=== PATIENT | female | born 1990 | race Caucasian/White ===

== ENCOUNTER 2016-08-02 11:59 | Emergency (ER) | payer MEDICAID ==
[2016-08-02] MEDS ORDERED: HYDROcod/ACETAM 5/325 MG TABLET PO STA (13:41)
[2016-08-02] MEDS ORDERED: CLINDAMYCIN 150 MG CAPSULE PO STA (13:41)
[2016-08-02] MEDS ORDERED: HYDROcod/ACETAM 5/325 MG TABLET ONE (13:44)
[2016-08-02] MEDS ORDERED: CLINDAMYCIN 150 MG CAPSULE PO ONE (13:44)
== END 2016-08-02 13:54 | disposition home or self-care (01) ==
DX: K04.7 Periapical abscess without sinus (principal); F17.200 Nicotine dependence, unspecified, uncomplicated
CPT/HCPCS: 99283; A9270

== ENCOUNTER 2017-09-16 21:35 | Emergency (ER) | payer MEDICAID | END 2017-09-16 22:10 | disposition left against medical advice (07) | LOC: ED 21:35 | DX: Z53.9 Procedure and treatment not carried out, unspecified reason (principal) ==

== ENCOUNTER 2017-09-30 00:53 | Outpatient (CLI) | payer MEDICAID | END 2017-09-30 00:54 | disposition critical access hospital (66) | LOC: EMS 00:53 | PROVIDERS: ATTEND Surgery | DX: R09.89 Other specified symptoms and signs involving the circulatory and respiratory systems (principal) | CPT/HCPCS: A0425; A0429 ==

== ENCOUNTER 2017-09-30 01:11 | Emergency (ER) | payer MEDICAID ==
[2017-09-30 01:58] LABS: MUDS CUTOFF CONCENTRATIONS CUTOFF CONC BELOW:
[2017-09-30 02:01] LABS: BILIRUBIN,URINE NEGATIVE (NEGATIVE); GLUCOSE, URINE (UA) NEGATIVE (NEGATIVE); KETONES,URINE (UA) NEGATIVE (NEGATIVE); LEUKOCYTE ESTERASE, URINE NEGATIVE (NEGATIVE); NITRITE,URINE NEGATIVE (NEGATIVE); OCCULT BLOOD,URINE NEGATIVE (NEGATIVE); PROTEIN,URINE NEGATIVE (NEGATIVE); UROBILINOGEN,URINE 0.2 (NORMAL) E.U./dL (NORMAL)
[2017-09-30 02:04] LABS: CLARITY,URINE CLEAR (CLEAR)
[2017-09-30 02:19] LABS: AMPHETAMINE SCREEN,URINE POSITIVE (NEGATIVE); BENZODIAZEPINES SCREEN, URINE NEGATIVE (NEGATIVE); COCAINE SCREEN URINE NEGATIVE (NEGATIVE); METHADONE SCREEN, URINE NEGATIVE (NEGATIVE); METHAMPHETAMINES SCREEN, URINE NEGATIVE (NEGATIVE); OPIATE SCREEN, URINE NEGATIVE (NEGATIVE); OXYCODONE SCREEN, URINE NEGATIVE (NEGATIVE); PROPOXYPHENE SCREEN, URINE NEGATIVE (NEGATIVE); TRICYCLIC ANTIDEPRESSANT,URINE NEGATIVE (NEGATIVE)
--- NOTE | 2017-09-30 02:36 | ED Physician Documentation ---
PD HPI ABD PAIN - Stated complaint Stated Complaint: SOA - Chief complaint Chief Complaint: Abd Pain - History obtained from History obtained from: Patient, EMS - History of Present Illness Timing - onset: Today Timing - details: Gradual onset, Still present Quality: Aching, Dull Location: Epigastric, LUQ Worsened by: Eating Associated symptoms: Nausea. No: Vomiting, Diarrhea, Constipation Similar symptoms before: No diagnosis Recently seen: Not recently seen - Additional information Additional information: Patient is a 27 year old female presenting to the emergency department for abdominal pain. Patient states that tonight she ate pizza (and she no longer has a gallbladder) then she developed left upper quadrant pain. Patient also states that she had nausea and vomiting. Review of Systems Constitutional: denies: Fever, Chills Cardiac: denies: Chest pain / pressure, Palpitations Respiratory: reports: Dyspnea. denies: Wheezing GI: reports: Abdominal Pain, Abdominal Swelling, Nausea. denies: Vomiting, Constipation, Diarrhea : denies: Dysuria, Frequency, Hesitancy Musculoskeletal: denies: Back pain Immunocompromised: denies: Immunocompromised PD PAST MEDICAL HISTORY - Past Medical History GI: Hepatitis - Past Surgical History Past Surgical History: Yes General: Cholecystectomy HEENT: Tonsil/Adenoidectomy - Present Medications Home Medications: Ambulatory Orders Medication Instructions Recorded Confirmed Ondansetron Odt [Zofran] 4 mg TL Q6H PRN #14 tablet 09/30/17 Simethicone [Gas Relief] 125 mg PO BID #20 capsule 09/30/17 - Allergies Allergies/Adverse Reactions: Allergies Allergy/AdvReac Type Severity Reaction Status Date / Time No Known Drug Allergies Allergy Verified 12/29/15 14:12 - Social History Does the pt smoke?: Yes Smoking Status: Current every day smoker Does the pt drink ETOH?: No Does the pt have substance abuse?: No - Immunizations Immunizations are current?: No PD ED PE NORMAL - Vitals Vital signs reviewed: Yes - General General: Alert and oriented X 3 - HEENT HEENT: Atraumatic - Cardiac Cardiac: RRR - Respiratory Respiratory: No respiratory distress - Abdomen Abdomen: Soft - Derm Derm: Normal color - Extremities Extremities: No deformity - Neuro Neuro: Alert and oriented X 3, No motor deficit Eye Opening: Spontaneous PD ED PE EXPANDED - General General: Alert, In Pain - Abdomen Abdomen: Tender to palpation, LUQ. No: Rebound, Guarding Results - Vitals Vitals: Vital Signs - 24 hr 09/30/17 01:12 Temperature 36.7 C Heart Rate 89 Respiratory 18 Rate Blood Pressure 136/93 H O2 Saturation 98 Oxygen O2 Source Room air - Labs Labs: Laboratory Tests 09/30/17 01:57 Urine Color YELLOW Urine Clarity CLEAR Urine pH 6.0 Ur Specific [place] >=1.030 H Urine Protein NEGATIVE Urine Glucose (UA) NEGATIVE Urine Ketones NEGATIVE Urine Occult Blood NEGATIVE Urine Nitrite NEGATIVE Urine Bilirubin NEGATIVE Urine Urobilinogen 0.2 (NORMAL) Ur Leukocyte Esterase NEGATIVE Ur Microscopic Review NOT INDICATED Urine Culture Comments NOT INDICATED Urine Opiates Screen NEGATIVE Ur Oxycodone Screen NEGATIVE Urine Methadone Screen NEGATIVE Ur Propoxyphene Screen NEGATIVE Ur Barbiturates Screen NEGATIVE Ur Tricyclics Screen NEGATIVE Ur Phencyclidine Scrn NEGATIVE Ur Amphetamine Screen POSITIVE H U Methamphetamines Scrn NEGATIVE U Benzodiazepines Scrn NEGATIVE Urine Cocaine Screen NEGATIVE U Cannabinoids Screen NEGATIVE - Rads (name of study) acute abdomen Radiology: Final report received (mild gas distention) PD MEDICAL DECISION MAKING - ED course Complexity details: reviewed old records, reviewed results, re-evaluated patient , considered differential, d/w patient ED course: Patient was seen and examined at bedside. multiple attempts at IV were made but were unsuccessful (patient has history of ivda). urine was collected. patient was treated with toradol and zofran. imaging was ordered. When patient returned from imaging results were reviewed. Patient had no signs of obstruction but did have some gaseous distention. patient was treated with pepcid, maalox and viscous lidocaine with good relief. Patient was given detailed discharge and follow up instructions. Patient required no further work up and was stable for discharge with outpatient follow up. - Sepsis Event Vital Signs: Vital Signs - 24 hr 09/30/17 01:12 Temperature 36.7 C Heart Rate 89 Respiratory 18 Rate Blood Pressure 136/93 H O2 Saturation 98 Oxygen O2 Source Room air Departure - Departure Disposition: 01 Home, Self Care Clinical Impression: Abdominal gas pain Condition: Good Instructions: Abdominal Pain Follow-Up: primary,care provider [Other] - Within 3 Days Prescriptions: Ondansetron Odt [Zofran] 4 mg TL Q6H PRN #14 tablet PRN Reason: Nausea / Vomiting Simethicone [Gas Relief] 125 mg PO BID #20 capsule Comments: Your diagnostics today were within normal limits. there is no acute abnormalities. Your symptoms are likely being caused by abdominal distention secondary to gas. You should avoid hi fat foods since you no longer have your gallbladder. You can take zofran for nausea and simethicone for gas. you should follow up with your doctor if your symptoms persist. You may return to the emergency department at any time for new, worsening or uncontrollable symptoms.
--- NOTE | 2017-09-30 02:38 | XRAY Report ---
EXAM: ABDOMINAL SERIES AND PA CHEST EXAM DATE: 09/30/2017 02:23 AM. CLINICAL HISTORY: Diffuse abdominal pain. Shortness of breath. COMPARISON: None. TECHNIQUE: 2 views abdomen and 1 view chest. FINDINGS: CHEST: Lungs/Pleura: No alveolar consolidation or pleural effusion seen. No pneumothorax. Mediastinum: Within exam limitations, cardiomediastinal contour is normal. ABDOMEN: Bowel Gas Pattern: No dilated loops or abnormal air-fluid levels. Moderate gas and stool in the colon . Free Air: None. Other: None. IMPRESSION: 1. No bowel obstruction seen. Moderate gas and stool in the colon. 2. No acute abnormality seen in the chest. [facility] Referring Provider Line: [phone] SITE ID: [id number]
--- NOTE | 2017-09-30 02:38 | XRAY Preliminary Report ---
Exam: XR ABDOMEN ACUTE IMPRESSION: 1. No bowel obstruction seen. Moderate gas and stool in the colon. 2. No acute abnormality seen in the chest. [facility] SITE ID: [id number]
[2017-09-30] MEDS ORDERED: MAG HYDROX/AL HYDROX/SIMETH 30 ML UDC PO STA (02:40)
[2017-09-30] MEDS ORDERED: ONDANSETRON ODT 4 MG TABLET TL STA (02:40)
[2017-09-30] MEDS ORDERED: LIDOCAINE VISCOUS 2% 15 ML UDC MM STA (02:40)
[2017-09-30] MEDS ORDERED: KETOROLAC 60 MG/2 ML VIAL IM STA (02:40)
[2017-09-30] MEDS ORDERED: FAMOTIDINE 20 MG TABLET PO STA (02:40)
[2017-09-30] MEDS ORDERED: ONDANSETRON ODT 4 MG Prepack 2 TL STA (02:59)
[2017-09-30 03:14] VITALS: BP 130/88
== END 2017-09-30 03:13 | disposition home or self-care (01) ==
LOC: EDUNIT# → ED 01:11
DX: R14.1 Gas pain (principal); F17.200 Nicotine dependence, unspecified, uncomplicated
CPT/HCPCS: 74022; 80306; 81003; 96372; 99283; A9270; Q0162; 80053; 80320; 81001; 83690; 83735; 84100; 84443; 84484; 85025; 87086

== ENCOUNTER 2018-03-14 20:57 | Emergency (ER) | payer SELFPAY ==
[2018-03-14] MEDS ORDERED: CLINDAMYCIN 150 MG CAPSULE PO STA (21:17)
[2018-03-14] MEDS ORDERED: IBUPROFEN 600 MG TABLET PO STA (21:17)
[2018-03-14] MEDS ORDERED: LORazepam 0.5 MG TABLET PO STA (21:17)
[2018-03-14] MEDS ORDERED: ONDANSETRON ODT 4 MG TABLET TL STA (21:17)
--- NOTE | 2018-03-14 21:21 | ED Physician Documentation ---
PD HPI HEENT FB - Chief complaint Chief Complaint: Heent - History obtained from History obtained from: Patient - History of Present Illness Timing - onset: Other (She has 2 complaints, she has not used heroin in about 2 or 3 days and is feeling restless legs, anxiety, poor sleep and nausea. He also has right-sided facial swelling from dental caries. No fevers or possibility of .) Review of Systems Constitutional: denies: Fever, Chills Throat: reports: Dental pain / toothache. denies: Sore throat Cardiac: denies: Chest pain / pressure, Palpitations Respiratory: denies: Dyspnea, Cough PD PAST MEDICAL HISTORY - Past Medical History GI: Hepatitis - Past Surgical History Past Surgical History: Yes General: Cholecystectomy HEENT: Tonsil/Adenoidectomy - Present Medications Home Medications: Ambulatory Orders Medication Instructions Recorded Confirmed Ondansetron Odt [Zofran] 4 mg TL Q6H PRN #14 tablet 09/30/17 Simethicone [Gas Relief] 125 mg PO BID #20 capsule 09/30/17 Clindamycin HCl [Clindamycin 300MG 300 mg PO Q6H #40 capsule 03/14/18 CAP] Ibuprofen [Motrin] 800 mg PO Q8H PRN #30 tablet 03/14/18 Lorazepam [Ativan] 1 mg PO TID PRN #15 tablet 03/14/18 Ondansetron Odt [Zofran] 4 mg TL Q6H PRN #10 tablet 03/14/18 - Allergies Allergies/Adverse Reactions: Allergies Allergy/AdvReac Type Severity Reaction Status Date / Time ibuprofen AdvReac Mild Nausea Verified 03/14/18 21:03 - Social History Does the pt smoke?: Yes Smoking Status: Current every day smoker Does the pt drink ETOH?: No Does the pt have substance abuse?: No - Immunizations Immunizations are current?: No PD ED PE NORMAL - Vitals Vital signs reviewed: Yes - General General: Alert and oriented X 3, No acute distress - HEENT HEENT: Other (Mild right-sided facial swelling overlying right maxillary premolars without obvious drainable abscess. No trismus or sublingual edema.) - Neck Neck: Supple, no meningeal sign, No bony TTP - Neuro Neuro: Alert and oriented X 3, Normal speech Results - Vitals Vitals: Vital Signs - 24 hr 03/14/18 21:03 Temperature 36.8 C Heart Rate 110 H Respiratory 18 Rate Blood Pressure 113/72 O2 Saturation 100 Oxygen O2 Source Room air Departure - Departure Disposition: 01 Home, Self Care Clinical Impression: Dental abscess, Heroin withdrawal Condition: Good Record reviewed to determine appropriate education?: Yes Instructions: ED Dental Abscess Facial Cellulitis, Addiction Heroin Tx Prescriptions: Clindamycin HCl [Clindamycin 300MG CAP] 300 mg PO Q6H #40 capsule Ibuprofen [Motrin] 800 mg PO Q8H PRN #30 tablet PRN Reason: PAIN &/OR FEVER Lorazepam [Ativan] 1 mg PO TID PRN #15 tablet PRN Reason: Anxiety Ondansetron Odt [Zofran] 4 mg TL Q6H PRN #10 tablet PRN Reason: Nausea / Vomiting Comments: It is very important that you follow-up with a dentist. When it comes to dental problems like yours, the emergency department can only offer a short-term solution to your long-term problem. A couple of low cost options for dental care include: [facility] in [place], calls [phone] for an appointment Or [facility] in [place], call [phone] for an appointment.
[2018-03-14 21:29] VITALS: BP 112/72
== END 2018-03-14 21:28 | disposition home or self-care (01) ==
LOC: ED 20:57
DX: K04.7 Periapical abscess without sinus (principal); F11.23 Opioid dependence with withdrawal; F17.200 Nicotine dependence, unspecified, uncomplicated
CPT/HCPCS: 99283; A9270; Q0162

== ENCOUNTER 2018-12-04 13:05 | Emergency (ER) | payer MEDICAID ==
[2018-12-04 13:38] VITALS: BP 109/68
== END 2018-12-04 17:00 | disposition left against medical advice (07) ==
LOC: ED 13:05
DX: Z53.21 Procedure and treatment not carried out due to patient leaving prior to being seen by health care provider (principal)

== ENCOUNTER 2019-06-16 19:31 | Emergency (ER) | payer MEDICAID ==
[2019-06-16 20:45] LABS: BASOPHILS % (AUTO) 0.3 %; EOSINOPHILS # (AUTO) 0.6 10^3/uL (0.0-0.7); EOSINOPHILS % (AUTO) 4.5 %; HGB - HEMOGLOBIN 12.7 g/dL (12.0-16.0); LYMPHOCYTES # (AUTO) 4.9 10^3/uL (1.5-3.5); MEAN CORPUSCULAR HEMOGLOBIN 27.8 pg (27.0-31.0); MEAN CORPUSCULAR VOLUME 86.9 fL (81.0-99.0); MEAN PLATELET VOLUME 9.1 fL (7.9-10.8); MONOCYTES % (AUTO) 8.3 %; NEUTROPHILS # (AUTO) 5.7 10^3/uL (1.5-6.6); NEUTROPHILS % (AUTO) 46.5 %; PLT - PLATELET COUNT 296 10^3/uL (130-450); RED BLOOD COUNT 4.57 10^6/uL (4.20-5.40); RED CELL DISTRIBUTION WIDTH 13.8 % (12.0-15.0); WHITE BLOOD COUNT 12.3 x10^3/uL (4.8-10.8)
[2019-06-16 21:03] LABS: ACETAMINOPHEN < 10 ug/mL (10-30); ALBUMIN 3.6 g/dL (3.2-5.5); ALBUMIN/GLOBULIN RATIO 0.7 (1.0-2.2); ALKALINE PHOSPHATASE 135 IU/L (42-121); ALT ALANINE AMINOTRANSFERASE 77 IU/L (10-60); AST ASPARTATE AMINOTRANSFERASE 51 IU/L (10-42); BILIRUBIN,TOTAL 0.3 mg/dL (0.2-1.0); BUN - BLOOD UREA NITROGEN 15 mg/dL (6-20); CALCIUM 9.4 mg/dL (8.5-10.3); CARBON DIOXIDE - CO2 28 mmol/L (21-32); CHLORIDE 102 mmol/L (101-111); CREATININE 0.7 mg/dL (0.4-1.0); GFR - MDRD 100 (>89); GLUCOSE 127 mg/dL (70-100); LIPASE 24 U/L (22-51); SALICYLATE < 6.0 mg/dL; SODIUM 139 mmol/L (135-145); TOTAL PROTEIN 8.8 g/dL (6.7-8.2)
--- NOTE | 2019-06-16 21:15 | ED Physician Documentation ---
History of Present Illness - Stated complaint Stated Complaint: MED CLEARANCE - DETOX - Chief complaint Chief Complaint: General - History obtained from History obtained from: Patient - History of Present Illness Timing: Today Pain level max: 0 Pain level now: 0 - Additonal information Additional information: 29-year-old female presents to the emergency department stating that she is going to go to detox tomorrow for heroin and methamphetamines. She has Suboxone already. She is states she was told to come here for medical clearance Review of Systems Ten Systems: 10 systems reviewed and negative Constitutional: denies: Fever, Chills Nose: denies: Rhinorrhea / runny nose, Congestion Cardiac: denies: Chest pain / pressure Respiratory: denies: Cough GI: denies: Abdominal Pain, Nausea, Vomiting, Diarrhea : denies: Dysuria, Now EGA Skin: denies: Rash Musculoskeletal: denies: Neck pain, Back pain Neurologic: denies: Headache PD PAST MEDICAL HISTORY - Past Medical History Past Medical History: Yes GI: Hepatitis - Past Surgical History Past Surgical History: Yes General: Cholecystectomy HEENT: Tonsil/Adenoidectomy - Present Medications Home Medications: Ambulatory Orders Medication Instructions Recorded Confirmed Ondansetron Odt [Zofran] 4 mg TL Q6H PRN #14 tablet 09/30/17 Simethicone [Gas Relief] 125 mg PO BID #20 capsule 09/30/17 Clindamycin HCl [Clindamycin 300MG 300 mg PO Q6H #40 capsule 03/14/18 CAP] Ibuprofen [Motrin] 800 mg PO Q8H PRN #30 tablet 03/14/18 Lorazepam [Ativan] 1 mg PO TID PRN #15 tablet 03/14/18 Ondansetron Odt [Zofran] 4 mg TL Q6H PRN #10 tablet 03/14/18 - Allergies Allergies/Adverse Reactions: Allergies Allergy/AdvReac Type Severity Reaction Status Date / Time ibuprofen AdvReac Mild Nausea Verified 12/04/18 13:38 - Living Situation Living Arrangement: reports: At home - Social History Does the pt smoke?: Yes Smoking Status: Current every day smoker Does the pt drink ETOH?: No Does the pt have substance abuse?: Yes Substance Use and Type: Meth, Heroin - Family History Family history: reports: Non contributory - Immunizations Immunizations are current?: Yes Immunizations: TDAP current <10years PD ED PE NORMAL - Vitals Vital signs reviewed: Yes - General General: Alert and oriented X 3, No acute distress, Well developed/nourished - HEENT HEENT: PERRL, Moist mucous membranes - Neck Neck: Supple, no meningeal sign - Cardiac Cardiac: RRR, Strong equal pulses - Respiratory Respiratory: No respiratory distress, Clear bilaterally - Abdomen Abdomen: Soft, Non tender, Non distended - Back Back: No CVA TTP, No spinal TTP - Derm Derm: Warm and dry - Extremities Extremities: Other (Track jenkins and healed sores to the bilateral forearms) - Neuro Neuro: Alert and oriented X 3 - Psych Psych: Normal mood, Normal affect Results - Vitals Vitals: Vital Signs - 24 hr 06/16/19 06/16/19 19:47 21:30 Temperature 36.6 C 36.7 C Heart Rate 98 108 H Respiratory 18 20 Rate Blood Pressure 125/67 114/72 O2 Saturation 100 97 Oxygen O2 Source Room air - Labs Labs: Laboratory Tests 06/16/19 06/16/19 06/16/19 20:42 20:42 20:42 WBC 12.3 H RBC 4.57 Hgb 12.7 Hct 39.7 MCV 86.9 MCH 27.8 MCHC 32.0 RDW 13.8 Plt Count 296 MPV 9.1 Neut # (Auto) 5.7 Lymph # (Auto) 4.9 H [place] # (Auto) 1.0 Eos # (Auto) 0.6 Baso # (Auto) 0.0 Absolute Nucleated RBC 0.00 Nucleated RBC % 0.0 Sodium 139 Potassium 3.8 Chloride 102 Carbon Dioxide 28 Anion Gap 9.0 BUN 15 Creatinine 0.7 Estimated GFR (MDRD) 100 Glucose 127 H Calcium 9.4 Total Bilirubin 0.3 AST 51 H ALT 77 H Alkaline Phosphatase 135 H Total Protein 8.8 H Albumin 3.6 Globulin 5.2 H Albumin/Globulin Ratio 0.7 L Lipase 24 TSH 3.30 Urine Color Urine Clarity Urine pH Ur Specific [place] Urine Protein Urine Glucose (UA) Urine Ketones Urine Occult Blood Urine Nitrite Urine Bilirubin Urine Urobilinogen Ur Leukocyte Esterase Urine RBC Urine WBC Ur Squamous Epith Cells Amorphous Sediment Urine Bacteria Ur Microscopic Review Urine Culture Comments Urine HCG, Qual Salicylates < 6.0 Urine Opiates Screen Ur Oxycodone Screen Urine Methadone Screen Ur Propoxyphene Screen Acetaminophen < 10 L Ur Barbiturates Screen Ur Tricyclics Screen Ur Phencyclidine Scrn Ur Amphetamine Screen U Methamphetamines Scrn U Benzodiazepines Scrn Urine Cocaine Screen U Cannabinoids Screen Ethyl Alcohol < 5.0 06/16/19 06/16/19 21:16 21:16 WBC RBC Hgb Hct MCV MCH MCHC RDW Plt Count MPV Neut # (Auto) Lymph # (Auto) [place] # (Auto) Eos # (Auto) Baso # (Auto) Absolute Nucleated RBC Nucleated RBC % Sodium Potassium Chloride Carbon Dioxide Anion Gap BUN Creatinine Estimated GFR (MDRD) Glucose Calcium Total Bilirubin AST ALT Alkaline Phosphatase Total Protein Albumin Globulin Albumin/Globulin Ratio Lipase TSH Urine Color YELLOW Urine Clarity CLEAR Urine pH 5.5 Ur Specific [place] >=1.030 H Urine Protein NEGATIVE Urine Glucose (UA) NEGATIVE Urine Ketones NEGATIVE Urine Occult Blood NEGATIVE Urine Nitrite NEGATIVE Urine Bilirubin NEGATIVE Urine Urobilinogen 0.2 (NORMAL) Ur Leukocyte Esterase TRACE H Urine RBC None Seen Urine WBC 0-3 Ur Squamous Epith Cells MANY Squamous H Amorphous Sediment Moderate Urine Bacteria Few Ur Microscopic Review INDICATED Urine Culture Comments NOT INDICATED Urine HCG, Qual NEGATIVE Salicylates Urine Opiates Screen POSITIVE H Ur Oxycodone Screen NEGATIVE Urine Methadone Screen NEGATIVE Ur Propoxyphene Screen NEGATIVE Acetaminophen Ur Barbiturates Screen NEGATIVE Ur Tricyclics Screen NEGATIVE Ur Phencyclidine Scrn NEGATIVE Ur Amphetamine Screen POSITIVE H U Methamphetamines Scrn POSITIVE H U Benzodiazepines Scrn NEGATIVE Urine Cocaine Screen NEGATIVE U Cannabinoids Screen NEGATIVE Ethyl Alcohol PD MEDICAL DECISION MAKING - ED course Complexity details: reviewed results, considered differential, d/w patient ED course: Patient with chronic lab abnormalities consistent with her history of hepatitis. No acute lab abnormalities. No open sores. I spoke with the detox facility. She will present herself there tomorrow. Patient counseled regarding signs and symptoms for which I believe and urgent re-evaluation would be necessary. Patient with good understanding of and agreement to plan and is comfortable going home at this time This document was made in part using voice recognition software. While efforts are made to proofread this document, sound alike and grammatical errors may occur. Urinalysis is consistent with contamination. She is asymptomatic as well. Departure - Departure Disposition: 01 Home, Self Care Clinical Impression: Encounter for medical screening examination Condition: Good Instructions: ED Drug Abuse General Follow-Up: detox,tomorrow [Other] Comments: Follow-up with detox tomorrow. Return if you worsen. You do have mild elevations of your liver function tests and these should be rechecked with your doctor in 1 to 2 weeks.
[2019-06-16 21:23] LABS: MUDS CUTOFF CONCENTRATIONS CUTOFF CONC BELOW:
[2019-06-16 21:28] LABS: BILIRUBIN,URINE NEGATIVE (NEGATIVE); GLUCOSE, URINE (UA) NEGATIVE (NEGATIVE); KETONES,URINE (UA) NEGATIVE (NEGATIVE); LEUKOCYTE ESTERASE, URINE TRACE (NEGATIVE); NITRITE,URINE NEGATIVE (NEGATIVE); OCCULT BLOOD,URINE NEGATIVE (NEGATIVE); PH,URINE 5.5 PH (5.0-7.5); PROTEIN,URINE NEGATIVE (NEGATIVE); UROBILINOGEN,URINE 0.2 (NORMAL) E.U./dL (NORMAL)
[2019-06-16 21:30] LABS: CLARITY,URINE CLEAR (CLEAR); HCG UR QUAL NEGATIVE
[2019-06-16 21:31] VITALS: BP 114/72
[2019-06-16 21:38] LABS: AMORPHOUS SEDIMENT,UR Moderate /LPF; AMPHETAMINE SCREEN,URINE POSITIVE (NEGATIVE); BACTERIA,URINE Few /HPF (None Seen); BENZODIAZEPINES SCREEN, URINE NEGATIVE (NEGATIVE); COCAINE SCREEN URINE NEGATIVE (NEGATIVE); METHADONE SCREEN, URINE NEGATIVE (NEGATIVE); METHAMPHETAMINES SCREEN, URINE POSITIVE (NEGATIVE); OPIATE SCREEN, URINE POSITIVE (NEGATIVE); OXYCODONE SCREEN, URINE NEGATIVE (NEGATIVE); PROPOXYPHENE SCREEN, URINE NEGATIVE (NEGATIVE); RBC,URINE None Seen /HPF (0-5); SQUAMOUS EPITHELIAL CELL,UR MANY Squamous (<= Few); TRICYCLIC ANTIDEPRESSANT,URINE NEGATIVE (NEGATIVE)
== END 2019-06-16 21:54 | disposition home or self-care (01) ==
LOC: ED 19:31
DX: F11.10 Opioid abuse, uncomplicated (principal); F15.10 Other stimulant abuse, uncomplicated; K75.9 Inflammatory liver disease, unspecified; F17.200 Nicotine dependence, unspecified, uncomplicated
CPT/HCPCS: 36415; 80053; 80306; 80307; 80320; 80329; 81001; 81003; 81025; 83690; 84443; 85025; 87086; 99282; 99283